=== PATIENT | female | born 1980 | race Caucasian/White ===

== ENCOUNTER 2020-04-25 08:20 | Outpatient (CLI) | payer OTHER, SELFPAY ==
[2020-04-25 08:59] LABS: Basophils Percent Auto 0.6 % (0.2-1.2); Eosinophils Absolute Auto 0.1 K/mm3 (0-0.3); Eosinophils Percent Auto 1.3 % (0-4.4); Hematocrit 40.6 % (37.0-47.0); Hemoglobin 13.2 g/dL (12.0-15.0); Immature Granulocyte Absolute 0.01 K/mm3 (0.00-0.031); Immature Granulocyte Percent A 0.2 % (0-0.5); Lymphocytes Absolute Auto 1.09 K/mm3 (0.9-3.2); Lymphocytes Percent Auto 23.1 % (18.3-44.2); Mean Corpuscular HGB Conc 32.5 g/dl (32-36); Mean Corpuscular Volume 89.2 fl (80-100); Mean Platelet Volume 11.5 fl (7.4-10.4); Monocytes Absolute Auto 0.4 K/mm3 (0.1-0.6); Monocytes Percent Auto 9.1 % (2.6-8.5); Neutrophils Absolute Auto 3.1 K/mm3 (1.3-6.7); Neutrophils Percent Auto 65.7 % (45.5-73.1); Platelet Count Result 149 k/mm3 (150-375); Red Blood Count 4.55 M/mm3 (4.2-5.4); Red Cell Distribution Width 13.1 % (11.5-14.5); White Blood Count 4.7 K/mm3 (4.5-10.0)
[2020-04-25 09:10] LABS: Hemoglobin A1C 5.1 % (<5.7)
[2020-04-25 09:12] LABS: Alanine Aminotransferase 11 U/L (4-35); Albumin Level 4.2 g/dL (3.5-5.1); Alkaline Phosphatase 52 U/L (38-126); Anion Gap 6 mmol/L (8-16); Aspartate Amino Transferase 19 U/L (14-36); Bilirubin,Total 0.3 mg/dL (0.2-1.3); Blood Urea Nitrogen 14 mg/dL (7-17); Calcium 8.9 mg/dL (8.4-10.2); Carbon Dioxide 28 mmol/L (22-30); Chloride 105 mmol/L (98-107); Cholesterol 207 mg/dL (0-200); Estimated Glomerular Filt Rate > 60; Glucose 100 mg/dL (65-105); HDL Direct 62 mg/dL; Potassium 4.1 mmol/L (3.4-5.0); Sodium 139 mmol/L (137-145); Triglycerides 46 mg/dL (<150)
[2020-04-25 09:23] LABS: LDL Cholesterol Direct 125 mg/dL
[2020-04-25 10:17] LABS: Folic Acid 11.3 ng/mL (2.76->20)
[2020-04-25 10:25] LABS: Vitamin D 25 Hydroxy 66.3 ng/mL
[2020-04-28 06:29] LABS: Prolactin 7.7 ng/mL (***)
== END 2020-04-25 08:21 | disposition home or self-care (01) ==
PROVIDERS: Visit Provider Obstetrics & Gynecology
DX: Z01.419 Encounter for gynecological examination (general) (routine) without abnormal findings (principal); N64.52 Nipple discharge
CPT/HCPCS: 36415; 80053; 80061; 82306; 82607; 82746; 83036; 84146; 84443; 85025

== ENCOUNTER 2021-04-16 12:22 | Emergency (ER) | payer OTHER, SELFPAY ==
[2021-04-16 12:30] VITALS: BP 124/80; PULSE 86; RESP 18; TEMP 36.9; O2SAT 100
--- NOTE | 2021-04-16 12:42 | ED_ITS ---
HPI - Skin/Abscess/Foreign Bdy General Chief complaint: Skin/Abscess/Foreign Body Stated complaint: Rash middle back Source: patient and RN notes reviewed Limitations: no limitations History of Present Illness HPI narrative: The patient, previously healthy but with prior history of shingles, presents with skin eruption. Patient states she has recurrence of her midline back of a pink, raised eruption that is pimply . Symptoms are mild and were previously improved 3- 4 months ago with treatment for shingles. No fever, cough, shortness of breath, other rash, Related Data Allergies Allergy/AdvReac Type Severity Reaction Status Date / Time No Known Allergies Allergy Mild Verified 04/16/21 12:42 Review of Systems Review of Systems: General/Constitutional: No weight loss,fever Eyes: N0: Redness,discharge Ears/Nose/Throat: No: Epistaxis,ear discharge Respiratory: Denies: Hemoptysis Gastrointestinal: No Vomiting, Bleeding-rectal Skin: No Lumps, REPORTS eruption Neurologic: No Focal Weakness,Sz Hematologic: Denies: Petechiae/Purpura Psychiatric: No: Suicida ideationl All Other Systems: Reviewed and Negative [facility] Family History Family History (Updated 03/21/16 @ 23:19 by DOCTOR UNKNOWN) Father Carcinoma of colon Grandparent Family history of malignant neoplasm of breast Mother Hypertension Family history of diabetes mellitus in first degree relative Social History Social History Smoking status: Never smoker Alcohol intake: current Comments At time of signature, agree with nursing past medical, surgical, social and family history. There is no relevant family history pertinent to the presenting complaint Exam Narrative: General Appearance: Well nourished, Normocephalic,, Conjunctiva clear Ear: External ear normal Nose: Normal nose, Nare clear Mouth/Throat: Normal appearing Neck Exam: Supple Respiratory: Airway patent, No respiratory distress Musculoskeletal: Moves all extremities, Non tender Spine/Back: Normal ROM Skin: Warm, Dry; smaller nickel sized , classic papulovesicular, dewdrop erythematous base eruption at about T4-5 of midline back Neurological: A&O x3rmal affect Course Vital Signs Vital signs: Vital Signs Temperature 98.5 F 04/16/21 12:30 Pulse Rate 86 04/16/21 12:30 Respiratory Rate 18 04/16/21 12:30 Blood Pressure 124/80 04/16/21 12:30 Pulse Oximetry 100 04/16/21 12:30 Temperature 98.5 F 04/16/21 12:30 Pulse Rate 86 04/16/21 12:30 Respiratory Rate 18 04/16/21 12:30 Blood Pressure 124/80 04/16/21 12:30 Pulse Oximetry 100 04/16/21 12:30 Discharge Plan Discharge Clinical Impression: Pruritic condition Herpes zoster Qualifiers: Herpes zoster complications: without complications Qualified Code(s): B02.9 - Zoster without complications Patient Disposition: Home, Self-Care Condition: Stable Instructions: Shingles (ED) Additional Instructions: Keep photo log of area, see PMD or motor builder assembler for follow-up Prescriptions: New valacyclovir [Valtrex] 1 gram tablet 1,000 mg PO TID Qty: 20 RF: 0 Follow-up/Referrals: Alphonso Noyola M.D. [Primary Care Provider] -
== END 2021-04-16 12:51 | disposition home or self-care (01) ==
PROVIDERS: Emergency Provider Emergency Medicine; PCP Family Medicine
DX: B02.9 Zoster without complications (principal)
CPT/HCPCS: 99213; G0463

== ENCOUNTER 2024-12-07 15:36 | Outpatient (CLI) | payer OTHER, SELFPAY ==
--- NOTE | ~2024-12-07 | MM_ITS ---
EXAMINATION: MM screening avery BI w arnol HISTORY: Screening TECHNIQUE: Craniocaudal and mediolateral oblique 3-D tomosynthesis images were obtained and synthetic 2-D images were generated. CAD analysis was submitted and interpreted. COMPARISON: No prior mammogram is available for comparison at this institution. BREAST PARENCHYMAL COMPOSITION: Not dense: There are scattered areas of fibroglandular density. FINDINGS: There is no evidence of suspicious mass, calcification, or architectural distortion to sugg est malignancy in either breast. There has been no suspicious interval change. IMPRESSION: 1. No mammographic evidence of malignancy. 2. Recommend routine screening mammography in one year. BI-RADS Category 1: Negative Reviewed, dictated and finalized at location B.
--- OUTSIDE RECORDS SUMMARY | 2024-12-07 16:44 | XMS_ITS | Clinical Summary ---
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 Gender Identity Not on file Sexual Orientation Not on file Plan of Treatment Health Maintenance Due Date Last Done Comments Cervical Cancer Screening Pa p Smear (Age 30 to 64) Every 3 Years 1981 Annual Physical 02/24/1984 Hepatitis C 1999 DTaP, Tdap and Td Vaccines ( 1 - Tdap) 02/24/2000 Hepatitis B Vaccines (1 of 3 - 19+ 3-dose series) 02/24/2000 Cervical Cancer Screening Pa p with HPV Testing (Age 30 to 64) Every 5 Years 2011 Cervical Cancer Screening with HPV 2011 Mammogram Screening 2021 COVID-19 Vaccine (2023-2 5 season) 2024 HPV Vaccines Aged Out No longer eligi ble based on patient's age to complete this topic Meningococcal B Vaccine Aged Out No l onger eligible based on patient's age to complete this topic Meningococcal Vaccine Aged Out No ermelinda cinthya eligible based on patient's age to complete this topic Pneumococcal Vaccine: Pediat rics (0 to 5 Years) and At-Risk Patients (6 to 49 Years) Aged Out No longer eligible b ased on patient's age to complete this topic RSV Immunizations Under 20 Months Aged Out No longer eligible based on patient's age to complete this topic Care Teams Dressing Machine Operator Relationship Specialty Start Date End Date Alphonso Noyola MD [address] [place] [address] [place] [address] PCP - General FAMILY PRACTICE 12/23/22
--- OUTSIDE RECORDS SUMMARY | 2024-12-07 16:44 | XMS_ITS | Clinical Summary ---
Author Organization [facility] Address [address] [place] [place] [address] Care Team Providers Care Faceter Name Role Phone Rosa M Jain MD Primary Care Provider Source Comments [facility],non-owned Affiliates and Associated Physician Practices is amultiple site organization consisting of ambulatory clinics and hospital sitesin [place], [place], [place] and [place]. This disclosure is being madepursuant to the Care Everywhere program and may not contain all information available regarding this patient. Last updated 18.[facility] Allergies No known active allergies Medications * Be aware that medications may not be up to date on this document. Alwaysverify current medications with the patient. 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 Gender Identity Not on file Sexual Orientation Not on file Last Filed Vital Signs Vital Sign Reading Time Taken Comments Blood Pressure 108/66 09/17/2016 9:12 AM WELL CONTROL INSTRUCTOR Pulse 100 09/17/2016 9:12 AM WELL CONTROL INSTRUCTOR Temperature 36.8 C (98.3 F) 09/17/2016 9:12 AM WELL CONTROL INSTRUCTOR Respiratory Rate 16 09/17/2016 9:12 AM WELL CONTROL INSTRUCTOR Oxygen Saturation 99% 09/17/2016 9:12 AM WELL CONTROL INSTRUCTOR Inhaled Oxygen Concentration - - Weight 68 kg (150 lb) 09/17/2016 9:12 AM WELL CONTROL INSTRUCTOR Height 162.6 cm (5' 4 ) 09/17/2016 9:12 AM WELL CONTROL INSTRUCTOR Body Mass Index 25.75 09/17/2016 9:12 AM WELL CONTROL INSTRUCTOR Plan of Treatment Health Maintenance Due Date Last Done Comments LIPID TESTING 1981 MAMMOGRAM 1981 PAP SMEAR 1981 HIV SCREENING 02/24/1996 HEPATITIS C SCREENING 02/19/1999 DTAP/TDAP/TD VACCINES (1 - Tdap) 02/24/2000 HEPATITIS B VACCINE (1 of 3 - 19+ 3-dose series) 02/24/2000 COVID-19 VACCINE (1 - 2023-2 5 season) 2024 DEPRESSION SCREENING 08/24/2024 INFLUENZA VACCINE (Season Ended) 2025 ZOSTER VACCINE (1 of 2) 2031 HIB VACCINE Aged Out No longer eligi ble based on patient's age to complete this topic HPV VACCINE Aged Out No longer eligi ble based on patient's age to complete this topic MENINGOCOCCAL (Group B) VACC INE SHARED DECISION-MAKING Aged Out No longer eligibl e based on patient's age to complete this topic MENINGOCOCCAL GROUPS A/C/Y/W VACCINE Aged Out No longer eligible b ased on patient's age to complete this topic PNEUMOCOCCAL VACCINE Aged Out No long er eligible based on patient's age to complete this topic Insurance Care Teams Faceter Relationship Specialty Start Date End Date Rosa M Jain MD PCP - General Family Medicine 09/17/16
--- OUTSIDE RECORDS SUMMARY | 2024-12-07 16:44 | XMS_ITS | Encounter Summary ---
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
--- OUTSIDE RECORDS SUMMARY | 2024-12-07 16:44 | XMS_ITS | Data Portability ---
Author Organization [facility], Main Office Address [address] [place] [address] Care Team Providers Care Manager Enterprise Name Role Phone BERT GODFREY Primary Care Provider [phone] Assessment No assessment recorded. Plan of Treatment Reminders Order Date Submit Date Provider Last Modified By Organization Details Last Modified Time Details Appointments None recorded. Lab None recorded. Referral None recorded. Procedures None recorded. Surgeries None recorded. Imaging None recorded. Medication Orders Efudex 5 % topical cream 025 025 [place] [id number], [address] [place], [address], 14:30:14 Patient TargetsNo targets recorded. Patient Instructions Encounter Date Encounter Id Patient Instructions Last Modified By Organization Details Last Modified Time 09/08/2024 [id number] if the lesion does not resolve this will be excisionally biopsied [email or web address] Not available 09/08/2024 14:30:25 Reason for Referral None Reported. Results Created Date Observation Date Name Description Value Unit Range Abnormal Flag Note LastModifiedBy Organization Detail LastModifiedTime 05/09/2005/13/2021 IGP, APTIM A HPV diagnosis: commen t NEGAT JAE FOR INTRA EPITH ELIAL RUTHY Blackburn OR HILLARY RAMSEY . Not Available [facility] [address], [place], [address], 05/13/2021 14:09:20 05/09/20 21 05/13/2021 IGP, APTIM A HPV specimen adequacy: commen t Satis facto ry for evalu ation . Endoc ervic al and/o r squam ous metap lasti c cells (endo cervi simon compo nent) are prese nt. Not Available [facility] [address] [place], [address], 05/13/2021 14:09:20 05/09/20 21 05/13/2021 IGP, APTIM A HPV clinician provided ICD10: savanna gustafson Z01.4 19 Not Available [facility] [address], [address], 05/13/2021 14:09:20 05/09/20 21 05/13/2021 IGP, APTIM A HPV performed by: Jeffrey Leon (ASCP ) Not Available [facility] [address] [place], [address], 05/13/2021 14:09:20 05/09/20 21 05/13/2021 IGP, APTIM A HPV . . Not Available [facility] [address] [place], [address], 05/13/2021 14:09:20 05/09/20 21 05/13/2021 IGP, APTIM A HPV note: savanna gustafson The Pap smear is a scree mary anne test desig xi to aid in the detec tion of huang ligna nt and malig nant condi tions of the uteri ne cervi x. It is not a diagn ostic proce dure and shoul d not be used as the sole means of detec ting cervi simon cance r. Both false -posi tive and false -nega tive repor ts do occur . Not Available [facility] [address] [place], [address], 05/13/2021 14:09:20 05/09/20 21 05/13/2021 IGP, APTIM A HPV test methodology: savanna gustafson This liqui d based ThinP rep(R ) pap test was scree xi with the use of an image guide gail toro m. Not Available [facility] [address] [place], [address], 05/13/2021 14:09:20 05/09/20 21 05/13/2021 IGP, APTIM A HPV HPV aptima negati ve negati ve This nucle ic acid ampli ficat ion test detec ts fourt een high- risk HPV types (16,1 8,31, 33,35 ,39,4 5,51, 52,56 ,58,5 9,66, 68) witho ut diffe renti ation . Not Available [facility] [address], [place], [address], 05/13/2021 14:09:20 01/01/20 21 12/31/2020 US, pelvi s, trans abdom inal + trans vagin al No observ ation record ed. [id number] Not Available 10/22/2022 07:35:47 05/16/20 21 MAMMO , scree mary anne, digit al, bilat eral [facility] [address] [address] Patien t Name: JUAN DANIEL MULLEN A Access ion #: [id number] Sex: F : 1979 4 Locati on: RA2 Attend ing Physic melania: DAVION MENJIVAR Orderi Physic melania: DAVION MENJIVAR Exam Date: 021 11:14 AM Exam Name: MG DIGITA L ERIC BILAT SCREEN Admitt ing Diagno sis(es ): RADIOL OGY REPORT - FINAL EXAM: MG DIGITA L ERIC BILAT SCREEN HISTOR Y: screen ing mammog lula COMPAR YFN: Mammog benny 2019 and 2016 TECHNI QUE: Bilate ral CC and MLO views of the breast s were perfor med. Digita l Mammog benny images were obtain ed. CAD (compu ter assist ed detect ion) was utiliz ed. FINDIN GS: There are scatte red areas of fibrog landul ar densit y. No masses , asymme tries, suspic ious calcif icatio ns, or bebo ectura l distor tion are seen. Page 1 of 2 [facility] Oscar gustafson Name: JUAN DANIEL MULLEN Access ion #: [id number] Sex: F : 1979 4 Exam Date: 11:14 AM Exam Name: MG DIGITA L ERIC BILAT SCREEN Admitt ing Diagno sis(es ): IMPRES IDANIA: BIRADS 1: Assess ment comple te. Negati ve. Recomm end annual screen ing mammog benny. Accord ing to the [employer], yearly mammog kleber are recomm ended starti ng at age 40 and contin uing as long as the woman is in good health . Clinic al Breast Exam should be part of the period health exam-a bout every 3 years for women in their 20s and 30s and every year for women 40 and over. Breast self-e xam is an option for women in their 20s. Any breast change noted on the breast self-e xam she would be report ed prompt ly to the oscar gustafson's [facility] er. A negati ve mammog benny report should not discou rage follow -up or biopsy of a clinic ally signif icant findin g and/or abnorm ality. Dense breast tissue may obscur e small neopla sms. This oscar gustafson has been entere d into a mammog benny remind er system with a target date for her next mammog lula. Create d and electr onical ly signed by: David Quiñones ch, DO Signed Date: 11:40 AM (CT) Dictat ed by: David Quiñones ch, DO DD: 11:40 AM (CT) DT: 11:40 AM (CT) Page 2 of 2 [id number] [facility] ([facility]) [address] [place], [address], 10/22/2022 07:35:47 Result Notes None recorded. Problems Name Problem SNOMED Code Status Onset Date Resolution Date Notes Provider Name and Address Organization Details Recorded Time Vaginal discharge symptom 100031840 Completed Not Available [facility] 3 07:28:59 Vaginitis 88792746 Completed Not Available [facility] 3 07:28:59 Persistent breast nodularity 087559920 Active Not Available [facility] 3 07:28:59 Dysuria 95935594 Completed Not Available [facility] 3 07:28:59 Irregular periods 38274990 Completed Not Available [facility] 3 07:28:59 Lesion of face 634761502 Active 2024 Alphonse Wolfe MD [address] [facility], [facility] [address], [place], [address] , [facility] Where I've Been 5 14:29:46 Problem Notes None recorded. Procedures Surgical History Date Name Laterality Status Provider Name and Address Organization Details Recorded Time 1 Most Recent Mammogram completed Not Available [facility] 10/22/2022 07:23:39 1 Date of Last Pap Smear completed Not Available [facility] 10/22/2022 07:23:39 8 HYDRO GENERATION MANAGER Procedure completed Not Available [facility] 2022 07:23:40 5 HYDRO GENERATION MANAGER Procedure completed Not Available [facility] 2022 07:23:40 3 HYDRO GENERATION MANAGER Procedure completed Not Available [facility] 2022 07:23:40 3 HYDRO GENERATION MANAGER Procedure completed Not Available [facility] 2022 07:23:40 2 HYDRO GENERATION MANAGER Procedure completed Not Available [facility] 2022 07:23:40 2 HYDRO GENERATION MANAGER Procedure completed Not Available [facility] 2022 07:23:40 1 Colposcopy completed Not Available [facility] 3 07:23:40 1 HYDRO GENERATION MANAGER Procedure completed Not Available [facility] 2022 07:23:40 0 HYDRO GENERATION MANAGER Procedure completed Not Available [facility] 2022 07:23:40 0 Colposcopy completed Not Available [facility] 3 07:23:40 Imaging Results Imaging Date Name Status LastModified by Organization Details LastModified Time 12/31/2020 US, pelvis, transabdominal + transvaginal completed [id number] Information not available 10/22/2022 07:35:47 05/16/2021 MAMMO, screening, digital, bilateral completed [id number] [facility] ([facility]) [address] [place], [address], 10/22/2022 07:35:47 Procedure Notes None recorded. Medical Equipment None Reported. Allergies No known drug allergies Medications Name Sig Start Date Stop Date Status Note LastModified by Organization Details LastModified Time amoxicillin 500 mg capsule 04/10 completed Not Available Not Available Not Available Mirena 21 mcg/24 hr (up to 8 years) 52 mg intrauterin e device Take 1 device by intrauter ine route. 09/08 completed Not Available Not Available Not Available cetirizine 10 mg tablet TAKE 1 TABLET BY MOUTH EVERY DAY 09/08 completed Not Available Not Available Not Available atorvastati n 10 mg tablet TAKE 1 TABLET BY MOUTH AT BEDTIME active Not Available Not Available No t Available fluconazole 150 mg tablet TAKE 1 TABLET BY MOUTH EVERY DAY FOR 1 DAY 05/09 completed Not Available Not Available Not Available valacyclovi r 1 gram tablet TAKE 1 TABLET BY MOUTH THREE TIMES A DAY active Not Available Not Available No t Available clarithromy jonatan 500 mg tablet TK 1 T PO Q 12 H active Not Available Not Available No t Available sumatriptan 100 mg tablet TK 1 T PO ONCE MAY REPEAT ONCE AFTER 2 H IF NEEDED. active Not Available Not Available No t Available hydrocodone 5 mg-acetamin ophen 325 mg tablet 04/10 completed Not Available Not Available Not Available phenazopyri dine 200 mg tablet TK 1 T PO TID PC active Not Available Not Available No t Available ondansetron HCl 4 mg tablet TK 1 T PO Q 6 H PRN NV active Not Available Not Available No t Available prednisone 20 mg tablet TAKE 2 TABLETS BY MOUTH DAILY FOR 5 DAYS 09/08 completed Not Available Not Available Not Available fluorouraci l 5 % topical cream active Not Available Not Available Not Available penicillin V potassium 500 mg tablet active Not Available Not Available Not Available topiramate 25 mg tablet TAKE 1 TABLET BY MOUTH EVERY NIGHT FOR 5 DAYS THEN TAKE 2 TABLETS BY MOUTH EVERY NIGHT FOR 5 DAYS THEN TAKE 3 TABLETS BY MOUTH EVERY NIGHT FOR 5 DAYS 09/08 completed Not Available Not Available Not Available metronidazo le 500 mg tablet TAKE 1 TABLET BY MOUTH TWICE DAILY FOR 7 DAYS 09/08 completed Not Available Not Available Not Available acetaminoph en 300 mg-codeine 30 mg tablet TK 1 T PO Q 4-6 HOURS PRN P active Not Available Not Available No t Available ciprofloxac in 250 mg tablet active Not Available Not Available Not Available acyclovir 400 mg tablet TK 1 T PO BID 07/22 completed Not Available Not Available Not Available valacyclovi r 500 mg tablet TK 1 T PO QDay active Not Available Not Available No t Available ciprofloxac in 500 mg tablet TK 1 T PO Q 12 H active Not Available Not Available No t Available sulfamethox azole 800 mg-trimetho prim 160 mg tablet TK 1 T PO Q 12 H active Not Available Not Available No t Available tramadol 50 mg tablet active Not Available Not Available No t Available triamcinolo ne acetonide 0.1 % topical cream APPLY TOPICALLY BID UTD active Not Available Not Available No t Available acyclovir 800 mg tablet TK 1 T PO QD 05/09 completed Not Available Not Available Not Available Microgestin FE 09/12 (28) 1 mg-20 mcg (21)/75 mg (7) tablet Take 1 tablet every day by oral route. 07/22 completed Not Available Not Available Not Available imiquimod 5 % topical cream packet APPLY TO THE AFFECTED AREA(S) BY TOPICAL ROUTE 5 TIMES PER WEEK. 2024 active Not Available Not Available Not Avai lable phenazopyri dine 100 mg tablet TAKE 1 TABLET BY MOUTH 3 TIMES A DAY 04/07 completed Not Available Not Available Not Available benzonatate 100 mg capsule TK 2 CS PO TID active Not Available Not Available No t Available nortriptyli ne 10 mg capsule TK 1 C PO ONCE DAILY IN EARLY PM UTD active Not Available Not Available No t Available oseltamivir 75 mg capsule 04/07 completed Not Available Not Available Not Available triamcinolo ne acetonide 0.1 % topical ointment PHUC A THIN LAYER EXT AA BID 07/22 completed Not Available Not Available Not Available clotrimazol e-betametha sone 1 %-0.05 % topical cream APPLY TO THE AFFECTED AREA TOPICALLY TWICE DAILY FOR 7 DAYS 07/22 completed Not Available Not Available Not Available promethazin e 25 mg tablet TK 1 T PO Q 6 HOURS PRN FOR NAUSEA active Not Available Not Available No t Available betamethaso ne dipropionat e 0.05 % topical cream APPLY A THIN LAYER TO THE AFFECTED AREA(S) BY TOPICAL ROUTE twice DAILY active Not Available Not Available No t Available hydroxyzine HCl 25 mg tablet TK 1 T PO QID PRF ITCHING active Not Available Not Available No t Available topiramate 100 mg tablet 09/08 completed Not Available Not Available Not Available fluticasone propionate 50 mcg/actuati on nasal spray,suspe nsion USE 2 SPRAYS IN EACH NOSTRIL DAILY 09/08 completed Not Available Not Available Not Available clotrimazol e 1 % topical cream APPLY TO THE AFFECTED AND SURROUNDI NG AREAS OF SKIN BY TOPICAL ROUTE 2 TIMES PER DAY IN THE MORNING AND EVENING active Not Available Not Available No t Available amoxicillin 875 mg-potassiu m clavulanate 125 mg tablet TAKE 1 TABLET BY MOUTH TWICE DAILY 09/08 completed Not Available Not Available Not Available Microgestin Fe 1.5/30 (28) 1.5 mg-30 mcg (21)/75 mg (7) tablet TK 1 T PO QD 08/28 completed Not Available Not Available Not Available NuvaRing 0.12 mg-0.015 mg/24 hr vaginal INSERT 1 RING INTRAVAGI RUTH FOR 3 WEEKS UTD active Not Available Not Available No t Available Microgestin 1.5/30 (21) 1.5 mg-30 mcg tablet Take 1 tablet every day by oral route. active Not Available Not Available No t Available bupropion HCl XL 150 mg 24 hr tablet, extended release TAKE 1 TABLET BY MOUTH DAILY FOR DEPRESSIO N 09/08 completed Not Available Not Available Not Available topiramate 50 mg tablet TAKE 1 TABLET BY MOUTH TWICE A DAY active Not Available Not Available No t Available nitrofurant oin monohydrate /macrocryst als 100 mg capsule TAKE ONE CAPSULE BY MOUTH TWICE A DAY 04/07 completed Not Available Not Available Not Available duloxetine 30 mg capsule,del ayed release TAKE 1 CAPSULE BY MOUTH DAILY FOR DEPRESSIO N OR ANXIETY 09/08 completed Not Available Not Available Not Available duloxetine 60 mg capsule,del ayed release TK 1 C PO QD active Not Available Not Available No t Available chlorhexidi ne gluconate 0.12 % mouthwash 09/08 completed Not Available Not Available Not Available ProAir HFA 90 mcg/actuati on aerosol inhaler INL 2 PUFFS PO Q 4 TO 6 H PRN active Not Available Not Available No t Available Lo Loestrin Fe 1 mg-10 mcg (24)/10 mcg (2) tablet Take 1 tablet every day by oral route. active Not Available Not Available No t Available ID NOW COVID-19 Test Kit TEST DIRECTED 05/09 completed Not Available Not Available Not Available BinaxNOW COVID-19 Ag Self Test kit 09/08 completed Not Available Not Available Not Available Vitals Date Recorded Body mass index (BMI) Body height Body weight Systolic blood pressure Diastolic blood pressure Provider Name and Address Organization Details Last Updated DateTime 05/09/2021 30.7 kg/m2 162.56 cm 86837.03 g 122 mm[Hg] 82 mm[Hg] Not Available [facility] 07:26:10 Date Recorded Body height Body mass index (BMI) Body weight Body temperature Provider Name and Address Organization Details Last Updated DateTime 09/08/2024 162.56 cm 31.5 kg/m2 54256.28 g 97.7 [degF] Caroline Bowen RN [place] [facility] [place] [facility] 09/08/2024 14:26:15 Social History Question Answer Notes LastModified by Organizat ion Details LastModified Time Tobacco Smoking Status Never Smoker Not Available [facility] 10/22/2022 07:23:19 What Is Your Level Of Alcohol Consumption? Occasional [id number] Information not available 10/22/2022 What Is Your Level Of Caffeine Consumption? Heavy [id number] Information not available 10/22/2022 Do You Use Your Seat Belt Or Car Seat Routinely? Yes [id number] Information not available 10/22/2022 Do You Use Any Illicit Or Recreational Drugs? No [id number] Information not available 10/22/2022 Do You Or Have You Ever Used Any Other Forms Of Tobacco Or Nicotine? No [id number] Information not available 10/22/2022 Sex: Unknown Functional Status Question Answer Note LastModified by Organizat ion Details LastModified Time What is your exercise level? Moderate [id number] Information not available 10/22/2022 Mental Status None recorded. Family History Relationship Description Onset Age of this Age Resolved Age Notes LastModified by Organization Details LastModified Time Mother Diabetes mellitus [id number] Not available 10/22/2022 07:23:41 Mother Hypertensive disorder [id number] Not available 10/22/2022 07:23:41 Brother Arachnoid cyst [id number] Not available 10/22/2022 07:23:42 Notes:NO ENT Medical History Condition Response NO SIGNIFICANT PAST MEDICAL HISTORY Y DEPRESSION (INCLUDING POST ) N HERPES Y Gynecological History Statement/Question Response Abnormal Pap Y Date of LMP Date of Last Pap Smear 05/09/2021 Current Control Method IUD Age at Menarche 15 Most Recent Mammogram 05/16/2021 Breast Problems no Obstetrics History GPAL:G 3 P 2 0 2 2 Type Value Full Term 2 Spontaneous 2 Living 2 Total 3 Past Encounters Encounter ID Performer Location Encounter Start Date Encounter Closed Date Diagnosis/Indication Diagnosis SNOMED-CT Code Diagnosis ICD10 Code Diagnosis Note [id number] _ATHENA_M IGRATION_ DEFAULT_1 _1 , 12/31/2020 00:00:00 12/31/2020 14:50:59 [id number] _ATHENA_M IGRATION_ DEFAULT_1 _1 , 05/09/2021 00:00:00 05/09/2021 15:31:41 [id number] Alphonse Wolfe MD [facility] [place] [address] [place] [address] 09/08/2024 14:16:49 09/09/2024 09:51:10 Lesion of face 640773398 L98.9 Health Concerns Section Related Observation LastModified by Organization Detai ls LastModified Time None Recorded Concern Status LastModified by Organization Details LastModified Time None Recorded Advance Directives Directive None Recorded Payers Encounter Date Sequence Insurance Name Policy Number Policy Landin Covered Member ID Landin Member ID Guarantor Name 09/08/2024 1 [facility] ON OR AFTER 02/21/21 (MEDICAID REPLACEMENT - HMO) Meghan Griffith [id number] Meghan Griffith Notes Date Note Type Note Provider Name and Address Organization Details Recorded Time 09/08/2024 text/html the patient has a left cheek lesion at the malar process present for 3 weeks. She does not believe that it is growing but does have a history of using tanning beds Alphonse Wolfe MD [address] [place] [address], [facility] [address], [place], [address], [facility] [employer] [facility] 09/08/2024 14:30:48 OBGyn Episode No OBEpisode recorded.
--- OUTSIDE RECORDS SUMMARY | 2024-12-07 16:44 | XMS_ITS | Clinical Summary ---
Author Organization [facility] Address [address] [place] [address] Phone Care Team Providers Care Advertising Intern Name Role Phone Rosa M Jain MD Primary Care Provider [phone] Kade Holder MD Unavailable [phone] Allergies No known active allergies Medications acyclovir (ZOVIRAX) 800 MG Tablet TK 1 T PO QD 2 05/06/2016 Active DULoxetine (CYMBALTA) [address] Particles TK 1 C PO QD 2 05/11/2016 Active nortriptyline (PAMELOR) 10 MG Capsule TK 1 C PO ONCE DAILY IN EARLY PM UTD 0 05/06/2016 Active Active Problems No known active problems Family History Medical History Relation Name Comments Breast Cancer Maternal Grandmother Dementia Mother Diabetes Mother Hypertension Mother Relation Name Status Comments Maternal Grandmother Mother Social History Tobacco Use Types Packs/Day Years Used Date Smoking Tobacco: Never Alcohol Use Standard Drinks/Week Comments No 0 (1 standard drink = 0.6 oz pur e alcohol) Comments No Sex and Gender Information Value Date Recorded Sex Assigned at Not on file Legal Sex Female 9:32 PM CDT Gender Identity Not on file Sexual Orientation Not on file Last Filed Vital Signs Vital Sign Reading Time Taken Comments Blood Pressure 110/80 05/19/2016 12:01 PM CDT Pulse 82 05/19/2016 12:01 PM CDT Temperature 36.9 C (98.4 F) 05/19/2016 12:01 PM CDT Respiratory Rate 14 05/19/2016 12:01 PM CDT Oxygen Saturation 98% 05/19/2016 12:01 PM CDT Inhaled Oxygen Concentration - - Weight 68 kg (150 lb) 05/19/2016 12:01 PM CDT Height 162.6 cm (5' 4 ) 05/19/2016 12:01 PM CDT Body Mass Index 25.75 05/19/2016 12:01 PM CDT Plan of Treatment Health Maintenance Due Date Last Done Comments Hepatitis C Virus (HCV) Screening 1981 TdaP Immunization 1981 Hepatitis B Immunization (1 of 3 - 19+ 3-dose series) 02/24/2000 Pap Smear 2002 Cervical Cancer Screening (CCS) 2011 HPV/Cotest 2011 Discussion re Starting/Frequ ency of Mammograms 2021 Influenza Immunization (#1) 2024 SARS-COV-2 Immunization ( season) 2024 Respiratory Syncytial Virus (RSV) Immunization (Adult) (1 - 1-dose 75+ series) 02/24/2056 Meningococcal Immunization (ACWY) Aged Out No longer eligible based on patient's age to complete this topic Pneumococcal Immunization Combined Aged Out No longer eligible based on patient's age to complete this topic Rotavirus Immunization Aged Out No lo nger eligible based on patient's age to complete this topic Insurance MEDICAID [employer] Care Teams Advertising Intern Relationship Specialty Start Date End Date Rosa M Jain MD [address] [place] [address] PCP - General Family Medicine 05/19/16 Kade Holder MD [address] [facility] [address] [place] [address] Consulting Physician Urology 05/19/16
== END 2024-12-07 15:37 | disposition home or self-care (01) ==
LOC: ANHIMG 15:39
PROVIDERS: PCP Family Medicine; Visit Provider Family Medicine
DX: Z12.31 Encounter for screening mammogram for malignant neoplasm of breast (principal)
CPT/HCPCS: 77063; 77067

== ENCOUNTER 2025-03-09 13:53 | Outpatient (CLI) | payer OTHER, SELFPAY ==
--- OUTSIDE RECORDS SUMMARY | 2025-03-09 14:10 | XMS_ITS | Clinical Summary ---
Author Organization [facility] [employer] Address [address] [address] Care Team Providers Care Wire Taper Name Role Phone Rosa M Jain MD Primary Care Provider Source Comments [facility] [employer],non-owned Affiliates and Associated Physician Practices is amultiple site organization consisting of ambulatory clinics and hospital sitesin [place], [place], [place] and [place]. This disclosure is being madepursuant to the Care Everywhere program and may not contain all information available regarding this patient. Last updated [employer] [facility] Allergies No known active allergies Medications * [...] on file Legal Sex Female 8:52 AM ASSISTANT PROFESSOR OF ECONOMICS Gender Identity Not on file Sexual Orientation Not on file Last Filed Vital Signs Vital Sign Reading Time Taken Comments Blood Pressure 108/66 09/17/2016 9:12 AM ASSISTANT PROFESSOR OF ECONOMICS Pulse 100 09/17/2016 9:12 AM ASSISTANT PROFESSOR OF ECONOMICS Temperature 36.8 C (98.3 F) 09/17/2016 9:12 AM ASSISTANT PROFESSOR OF ECONOMICS Respiratory Rate 16 09/17/2016 9:12 AM ASSISTANT PROFESSOR OF ECONOMICS Oxygen Saturation 99% 09/17/2016 9:12 AM ASSISTANT PROFESSOR OF ECONOMICS Inhaled Oxygen Concentration - - Weight 68 kg (150 lb) 09/17/2016 9:12 AM ASSISTANT PROFESSOR OF ECONOMICS Height 162.6 cm (5' 4) 09/17/2016 9:12 AM ASSISTANT PROFESSOR OF ECONOMICS Body Mass Index 25.75 09/17/2016 9:12 AM ASSISTANT PROFESSOR OF ECONOMICS Plan of Treatment Health Maintenance Due Date Last Done Comments LIPID TESTING 1981 MAMMOGRAM 1981 HIV SCREENING 02/24/1996 HEPATITIS C SCREENING 02/19/1999 DTAP/TDAP/TD VACCINES (1 - Tdap) 02/24/2000 HEPATITIS B VACCINE (1 of 3 - 19+ 3-dose series) 02/24/2000 HPV VACCINE (1 - 3-dose SCDM series) 02/24/2008 COVID-19 VACCINE (1 - 2023-2 5 season) 2024 DEPRESSION SCREENING 08/24/2024 INFLUENZA VACCINE (#1) 2025 ZOSTER VACCINE (1 of 2) 2031 [...] to complete this topic Insurance Care Teams Wire Taper Relationship Specialty Start Date End Date Rosa M Jain MD PCP - General Family Medicine 09/17/16
--- OUTSIDE RECORDS SUMMARY | 2025-03-09 14:10 | XMS_ITS | Clinical Summary ---
Author Organization [facility] Address [address] [place] [address] Phone Care Team Providers Care Instrument Lens Inspector Name Role Phone Rosa M Jain MD Primary Care Provider [phone] Kade Holder MD Unavailable [phone] Allergies No known active allergies Medications acyclovir [...] 12:01 PM CDT Height 162.6 cm (5' 4) 05/19/2016 12:01 PM CDT Body Mass Index [...] Insurance MEDICAID [employer] Care Teams Instrument Lens Inspector Relationship Specialty Start Date End Date Rosa M Jain MD [address] [place] [address] PCP - General Family Medicine 05/19/16 Kade Holder MD [address] [place] [address] Consulting Physician Urology 05/19/16
--- OUTSIDE RECORDS SUMMARY | 2025-03-09 14:10 | XMS_ITS | Encounter Summary ---
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
--- OUTSIDE RECORDS SUMMARY | 2025-03-09 14:10 | XMS_ITS | Clinical Summary ---
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
[2025-03-09 14:43] LABS: Add Urine Microscopic? YES; Appearance Urine Cloudy (Clear); Glucose Urine UA Negative (Negative); Leukocyte Esterase Ur Trace LEU/UL (Negative); Nitrate Urine Negative (Negative); Non Pathogenic Casts 0-2; Specific Grav Ur 1.008 (1.001-1.035)
== END 2025-03-09 13:54 | disposition home or self-care (01) ==
LOC: ANHLAB 13:54
PROVIDERS: PCP Family Medicine; Visit Provider Obstetrics & Gynecology
DX: R30.0 Dysuria (principal)
CPT/HCPCS: 81001